=== PATIENT | female | born 1995 | race Caucasian/White ===

== ENCOUNTER 2017-07-31 11:35 | Emergency (ER) | payer OTHER ==
[2017-07-31 11:44] VITALS: BP 137/74
--- NOTE | 2017-07-31 12:23 | ED Physician Documentation ---
PD HPI CHEST PAIN - Stated complaint Stated Complaint: SOA - Chief complaint Chief Complaint: Resp - History obtained from History obtained from: Patient - History of Present Illness Timing - onset: Other (For maybe a year and a half she has had intermittent pleuritic sharp low chest pain bilaterally. It lasts for a couple of hours at a time and it does not seem to be a pattern to it. When it happens she is mildly short of breath. She had an episode lasting for about 2 hours today but is pain-free on my evaluation. [place] which included a chest x-ray and exam which was negative. She denies pedal edema or calf pain but is on oral control pills. No recent travel.) Review of Systems Ten Systems: 10 systems reviewed and negative Constitutional: denies: Fever, Chills Cardiac: denies: Palpitations Respiratory: denies: Cough GI: denies: Abdominal Pain, Nausea, Vomiting, Diarrhea PD PAST MEDICAL HISTORY - Past Medical History Past Medical History: No - Past Surgical History Past Surgical History: No - Allergies Allergies/Adverse Reactions: Allergies Allergy/AdvReac Type Severity Reaction Status Date / Time No Known Drug Allergies Allergy Verified 07/31/17 11:43 - Social History Does the pt smoke?: No Smoking Status: Never smoker Does the pt drink ETOH?: Yes Does the pt have substance abuse?: No - Immunizations Immunizations are current?: Yes - POLST Patient has POLST: No PD ED PE NORMAL - Vitals Vital signs reviewed: Yes - General General: Alert and oriented X 3, No acute distress - HEENT HEENT: PERRL, EOMI - Neck Neck: Supple, no meningeal sign, No bony TTP - Cardiac Cardiac: RRR, No murmur - Respiratory Respiratory: No respiratory distress, Clear bilaterally - Abdomen Abdomen: Non tender - Extremities Extremities: No edema, No calf tenderness / cord - Neuro Neuro: Alert and oriented X 3, Normal speech Results - Vitals Vitals: Vital Signs - 24 hr 07/31/17 11:39 Temperature 36.8 C Heart Rate 72 Respiratory 18 Rate Blood Pressure 137/74 H O2 Saturation 100 Oxygen O2 Source Room air - EKG (time done) 1242 Rate: Rate (enter#) (65) Rhythm: NSR [place]: Normal Intervals: Normal [place] QRS: Normal Ischemia: Normal ST segments Computer interpretation: Agree with computer - Labs Labs: Laboratory Tests 07/31/17 07/31/17 07/31/17 13:33 13:33 13:33 WBC 6.5 RBC 4.40 Hgb 12.8 Hct 37.3 MCV 84.8 MCH 29.1 MCHC 34.3 RDW 12.4 Plt Count 395 MPV 7.0 L Neut # 4.3 Lymph # 1.8 Barren # 0.3 Eos # 0.0 Baso # 0.0 Absolute Nucleated RBC 0.00 Nucleated RBC % 0.0 D-Dimer < 200.0 L Sodium 136 Potassium 3.8 Chloride 103 Carbon Dioxide 26 Anion Gap 7.0 BUN 10 Creatinine 0.6 Estimated GFR (MDRD) 125 Glucose 106 H Calcium 8.7 Total Bilirubin 0.6 AST 19 ALT 17 Alkaline Phosphatase 41 L Total Protein 7.2 Albumin 4.2 Globulin 3.0 Albumin/Globulin Ratio 1.4 Lipase 29 Departure - Departure Disposition: 01 Home, Self Care Clinical Impression: Pleurisy Condition: Good Record reviewed to determine appropriate education?: Yes Instructions: ED Chest Pain Pleurisy Comments: Ibuprofen as needed for pain, return if worse, follow-up with your physician, next available appointment. Your blood pressure was elevated today on check into the emergency department. This does not mean that you have hypertension, it is a common phenomenon to come to the emergency department and have elevated blood pressure. I recommend that you see your primary care physician within the week to have it rechecked when you are feeling better.
[2017-07-31 13:41] LABS: BASOPHILS % (AUTO) 0.3 %; EOSINOPHILS % (AUTO) 0.6 %; HGB - HEMOGLOBIN 12.8 g/dL (12.0-16.0); LYMPHOCYTES # (AUTO) 1.8 10^3/uL (1.5-3.5); LYMPHOCYTES % (AUTO) 27.2 %; MEAN CORPUSCULAR HEMOGLOBIN 29.1 pg (27.0-31.0); MEAN CORPUSCULAR HGB CONC 34.3 g/dL (32.0-36.0); MEAN CORPUSCULAR VOLUME 84.8 fL (81.0-99.0); MONOCYTES # (AUTO) 0.3 10^3/uL (0.0-1.0); MONOCYTES % (AUTO) 5.3 %; NEUTROPHILS # (AUTO) 4.3 10^3/uL (1.5-6.6); NEUTROPHILS % (AUTO) 66.6 %; PLT - PLATELET COUNT 395 10^3/uL (130-450); RED CELL DISTRIBUTION WIDTH 12.4 % (12.0-15.0); WHITE BLOOD COUNT 6.5 x10^3/uL (4.8-10.8)
--- NOTE | 2017-07-31 13:48 | XRAY Report ---
EXAM: CHEST RADIOGRAPHY EXAM DATE: 07/31/2017 01:28 PM. CLINICAL HISTORY: Chest pains. COMPARISON: None. TECHNIQUE: 2 views. FINDINGS: Lungs/Pleura: No focal opacities evident. No pleural effusion. No pneumothorax. Normal volumes. Mediastinum: Heart and mediastinal contours are unremarkable. Other: None. IMPRESSION: No acute intrathoracic plain film abnormality. [facility] Referring Provider Line: [phone] SITE ID: [id number]
[2017-07-31 13:55] LABS: ALBUMIN 4.2 g/dL (3.2-5.5); ALBUMIN/GLOBULIN RATIO 1.4 (1.0-2.2); BILIRUBIN,TOTAL 0.6 mg/dL (0.2-1.0); CALCIUM 8.7 mg/dL (8.5-10.3); CREATININE 0.6 mg/dL (0.4-1.0); TOTAL PROTEIN 7.2 g/dL (6.7-8.2)
== END 2017-07-31 14:29 | disposition home or self-care (01) ==
LOC: ED 11:35
DX: R09.1 Pleurisy (principal); R03.0 Elevated blood-pressure reading, without diagnosis of hypertension
CPT/HCPCS: 36415; 71046; 80053; 83690; 85025; 85379; 93005; 99282; 99283

== ENCOUNTER 2018-07-16 09:12 | Outpatient (CLI) | payer OTHER ==
[2018-07-16] MEDS ORDERED: ALBUTEROL NEB 2.5 MG/3 ML INH ONE (10:30)
== END 2018-07-16 09:13 | disposition home or self-care (01) ==
LOC: EDSEX → RT 09:12 → MERGE 09:30
PROVIDERS: ATTEND Family Medicine
DX: R06.00 Dyspnea, unspecified (principal)
CPT/HCPCS: 94060; 94664